=== PATIENT | female | born 1940 | race Caucasian/White ===

== ENCOUNTER → 2016-12-19 09:12 | Outpatient (CLI) | payer MEDICARE ==
[2014-06-18 23:44] VITALS: BMI 18.3
[~2016-12-19 09:12] MED LIST: DAILY MULTIVITA1 TA1 PO; PEPCID20 MG PO; PERCOCET 5-3251 TAB PO; ROBAXIN500 MG PO
== END | disposition home or self-care (01) ==
LOC: D.CT 09:12
DX: R10.9 Unspecified abdominal pain (principal); R10.2 Pelvic and perineal pain

== ENCOUNTER → 2017-03-07 10:19 | Outpatient (CLI) | payer MEDICARE ==
[2014-06-18 23:44] VITALS: BMI 18.3
== END | disposition home or self-care (01) ==
LOC: D.RAD 03-04 10:00
DX: R10.9 Unspecified abdominal pain (principal); Z98.890 Other specified postprocedural states

== ENCOUNTER 2018-07-29 12:00 | Outpatient (CLI) | payer MEDICARE | END 2018-07-29 12:30 | disposition home or self-care (01) | LOC: D.MAMMO 12:00 | DX: Z12.31 Encounter for screening mammogram for malignant neoplasm of breast (principal) ==

== ENCOUNTER 2020-05-31 15:20 | Outpatient (CLI) | payer MEDICARE ==
[2014-06-18 23:44] VITALS: BMI 18.3
== END 2020-05-31 23:59 | disposition home or self-care (01) ==
LOC: D.MAMMO 15:20
PROVIDERS: ATTEND Family Medicine
DX: Z12.31 Encounter for screening mammogram for malignant neoplasm of breast (principal)